=== PATIENT | female | born 1985 | race African-American/Black ===

== ENCOUNTER 2018-01-22 16:58 | Inpatient (IN) | payer OTHER ==
[~2018-01-22] VITALS: Ht 170.2 cm; Wt 85.3 kg
[~2018-01-22 16:58] MED LIST: A/B OTIC 54 MG/15 ML OT; AMBIEN5 M1 PO; AMOXICILLIN500 M3 PO; AMOXIL 875 MG875 MG PO; BACTRIM DS 8001 TAB PO; CLINDAMYCIN300 MG PO; CYCLOBENZAPRINE10 M1 PO; HYDROXYZINE HCL50 M1 PO; HYDROXYZINE50 MG PO; IBUPROFEN800 M1 PO; INDOCIN25 MG PO; INDOMETHACIN50 M1 PO; KEFLEX 250MG C250 MG PO; KEFLEX500 MG PO; MOTRIN800 MG PO; PANTOPRAZOLE SO40 M1 PO; PERCOCET 325 MG1 TA2 PO; PERCOCET 5-3251 EACH PO; PRENATAL 19 CH1 EAC1; PROPRANOLOL HC120 M1; TRAMADOL50 MG PO; TRIAMCINOLONE A15 G3 TOP; ZOFRAN ODT4 MG PO
[2018-01-22 17:34] LABS: ABSOLUTE BASOPHIL COUNT 0.1 /CUMM (0.0-0.2); ABSOLUTE EOSINOPHIL COUNT 0.1 /CUMM (0.0-0.7); ABSOLUTE GRANULOCYTE CT 4.8 /CUMM (1.4-6.5); ABSOLUTE MONOCYTE COUNT 0.4 /CUMM (0.10-0.60); BASOPHIL % 1.4 % (0.0-2.0); EOSINOPHIL % 1.4 % (0-5); HEMATOCRIT 36.6 % (37-47); MEAN CORPUSCULAR HGB 26.5 PG (27.0-31.0); MEAN CORPUSCULAR HGB CONC 32.7 G/DL (33.0-37.0); MEAN PLATELET VOLUME 7.7 FL (7.4-10.4); PLATELET COUNT 459 /CUMM (130-400); RBC DISTRIBUTION WIDTH 14.8 % (11.5-14.5); RED BLOOD CELL CT 4.52 /CUMM (4.20-5.40); WHITE BLOOD CELL COUNT 8.5 /CUMM (4.8-10.8)
--- NOTE | 2018-01-22 19:37 | ED GENERAL ADULT ---
History of Present Illness General Chief Complaint: Abdominal Pain/Flank Pain Stated Complaint: ABD PAIN X2 DAYS +V Source: patient Exam Limitations: no limitations Vital Signs & Intake/Output Vital Signs & Intake/Output Vital Signs Date Time Temp Pulse Resp B/P B/P Pulse O2 O2 Flow FiO2 Mean Ox Delivery Rate 01/22 2201 98.3 98 Room Air 01/22 2156 80 18 110/60 01/22 1904 97 Room Air 01/22 1711 97.9 88 20 136/80 Allergies Coded Allergies: sulfamethoxazole (From BACTRIM) (RASH AND BAD FEELING 09/07/15) trimethoprim (From BACTRIM) (RASH AND BAD FEELING 09/07/15) Reconcile Medications Amoxicillin 500 MG TABLET 1 TAB PO TID PHARYNGITIS Amoxicillin (Amoxil 875 MG Tablets) 875 MG TAB 1 TAB PO BID EAR INFECTION Antipyrine/Benzocaine (A/B Otic 54 MG/Ml-14 MG/Ml 15 Ml) 15 ML YASIR 2-4 GTT OT Q4P PRN ear pain Cephalexin (Keflex) 500 MG CAP 1 TAB PO TID CELLUILTIS Cephalexin (Keflex 250MG Cap) 250 MG CAP 1 TAB PO 4 TIMES/DAY INFECTED WOUND CLINDAMYCIN HCL (Clindamycin HCl) 300 MG CAP 1 TAB PO TID WOUND DEHISCENSE Cyclobenzaprine HCl 10 MG TABLET 1 TAB PO 4 TIMES/DAY PRN MUSCLE SPASM Hydroxyzine Hydrochloride (Hydroxyzine) 50 MG TAB 1 TAB PO TID PRN PRURITUS Hydroxyzine Hydrochloride (Atarax) 50 MG TABLET 1 TAB PO Q6H PRN RASH/ITCH Ibuprofen 800 MG TABLET 1 TAB PO TID PRN pain Ibuprofen (Motrin) 800 MG TAB 1 TAB PO Q8H PRN PAIN/FEVERS Indomethacin 50 MG CAPSULE 1 CAP PO TID PRN THUMB PAIN with food Indomethacin (Indocin) 25 MG CAP 1 TAB PO TID PRN PAIN take with food Ondansetron (Zofran Odt) 4 MG TAB.RAPDIS 1 TAB PO Q6H PRN NAUSEA Oxycodone HCl/Acetaminophen (Percocet 5-325 MG Tablet) 5 MG-325 MG TABLET 1 TAB PO 4XDP PRN PAIN TEN...[id number] OXYCODONE HCL/ACETAMINOPHEN (Percocet 5-325 MG Tablet) 325 MG/5 MG TAB 1-2 TAB PO Q4-6 PRN PRN PAIN Pantoprazole Sodium 40 MG TABLET.DR 1 TAB PO DAILY STOMACH HEALTH (Reported) Pnv No.118/Iron Fumarate/FA ( 19 Chewable Tablet) 29 MG IRON-1 MG TAB.CHEW HEALTH SUPPLEMENT (Reported) Propranolol HCl (Propranolol HCl ER) 120 MG CAP.SA.24H MIGRAINE (Reported) TRAMADOL HCL (Tramadol) 50 MG TAB 1-2 TAB PO Q6P PRN PAIN Triamcinolone Acetonide 15 GM OINT...G. 1 JEAN TOP BID PRN itch/rash apply to affected area(s) Zolpidem Tartrate (Ambien) 5 MG TABLET 5 MG PO D PRN SLEEP (Reported) Triage Note: PER PT X 2 DAYS UPPER ABD PAIN, VOMITS ONLY AFTER EATING OR DRINKING ANYTHING NO DIARRHEA OR FEVERS. LMP 12/11/17 Triage Nurses Notes Reviewed? yes Onset: Abrupt Duration: day(s): Timing: recent history : No Patient currently breastfeeds: No HPI: 01/22/18 8:50 PM 32-year-old female presents to the emergency department for 2 days of progressive epigastric abdominal pain followed by episodes of vomiting today. She is status post gastric bypass surgery in 2016. Her last bowel movement was today it was slight diarrhea. Past History Travel History Traveled to [place] past 21 day No Medical History Any Pertinent Medical History? 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 No Review of Systems Review of Systems Constitutional: Denies: fever. EENTM: Denies: visual changes. Respiratory: Denies: short of breath. Cardiovascular: Denies: chest pain. GI: Reports: abdominal pain, nausea, vomiting. Genitourinary: Reports: no symptoms. Musculoskeletal: Reports: no symptoms. Skin: Reports: no symptoms. Neurological/Psychological: Reports: no symptoms. Hematologic/Endocrine: Reports: no symptoms. Immunologic/Allergic: Reports: no symptoms. Physical Exam Physical Exam General Appearance: well developed/nourished, alert, awake, anxious, moderate distress Head: atraumatic, normal appearance Eyes: Bilateral: normal appearance, PERRL, EOMI. Ears, Nose, Throat: normal pharynx, normal ENT inspection, hearing grossly normal Neck: normal inspection, supple, full range of motion Respiratory: normal breath sounds, chest non-tender, no respiratory distress Cardiovascular: regular rate/rhythm Peripheral Pulses: 4+ radial (R), 4+ radial (L) Gastrointestinal: soft, non-tender Back: normal range of motion, vertebral tenderness Extremities: normal range of motion, no edema Neurologic/Psych: no motor/sensory deficits, awake, alert, oriented x 3 Skin: intact, normal color, warm/dry Core Measures ACS in differential dx? No CVA/TIA Diagnosis: No Sepsis Present: No Sepsis Focused Exam Completed? No Progress Differential Diagnoses I considered the following diagnoses in my evaluation of the patient: [Bowel obstruction, pancreatitis, cholecystitis, peptic ulcer disease, internal hernia Plan of Care: Orders Procedure Date/time Status Nothing by Mouth 01/[address] in observation 01/23 34 Active ED Holding Orders 01/23 34 Active Vital Signs 01/23 34 Active Code Status 01/23 34 Active LACTIC ACID 01/23 2008 Complete URINE 01/23 1708 Complete URINALYSIS 01/23 1708 Complete LIPASE 01/23 1708 Complete LACTIC ACID 01/23 1708 Complete COMPREHENSIVE METABOLIC PANEL 01/23 1708 Complete CBC WITHOUT DIFFERENTIAL 01/23 1708 Complete Current Medications Sig/Mitzy Start time Last Medication Dose Stop Time Status Admin Morphine Sulfate 4 MG ONCE ONE 01/23 30 UNVr (MORPHINE SULFATE) 01/23 31 Pantoprazole Sodium 40 MG ONCE ONE 01/23 30 UNVr (Protonix) 01/23 31 Laboratory Tests 01/22/18 2101: Lactic Acid 0.6 L 01/22/18 1858: Urinalysis LIGHT H, Urine Color YEL, Urine Clarity HAZY H, Urine pH 6.5, Ur Specific [place] 1.025, Urine Protein NEG, Urine Ketones NEG, Urine Nitrite NEG, Urine Bilirubin NEG, Urine Urobilinogen 1.0, Ur Leukocyte Esterase TRACE H, Ur Microscopic SEDIMENT EXAMINED, Urine RBC 3-5, Urine WBC 3-5 H, Ur Epithelial Cells MOD H, Urine Bacteria FEW H, Urine Mucus FEW, Urine Hemoglobin TRACE- INTACT, Urine Glucose NEG, Urine Test NEGATIVE 01/22/18 1720: Anion Gap 10, Estimated GFR > 60, BUN/Creatinine Ratio 12.5, Glucose 149 H, Lactic Acid 1.7, Calcium 9.0, Total Bilirubin 0.7, AST 25, ALT 36, Alkaline Phosphatase 48, Total Protein 7.0, Albumin 4.1, Globulin 2.9, Albumin/Globulin Ratio 1.4, Lipase 172, CBC w Diff NO MAN DIFF REQ, RBC 4.52, MCV 81.0, MCH 26.5 L, MCHC 32.7 L, RDW 14.8 H, MPV 7.7, Gran % 57.0, Lymphocytes % 35.4, Monocytes % 4.8, Eosinophils % 1.4, Basophils % 1.4, Absolute Granulocytes 4.8, Absolute Lymphocytes 3.0, Absolute Monocytes 0.4, Absolute Eosinophils 0.1, Absolute Basophils 0.1 Initial ED EKG: none Departure Departure Disposition: STILL A PATIENT Condition: Stable Clinical Impression Primary Impression: Abdominal pain Referrals: Ni Gamboa MD (PCP/Family) Departure Forms: Customer Survey General Discharge Information Observation Note Spoke With: Kendal MENESES,Alexander NSanford Physician Advisor Notified: TATI PALMA DO Place Patient In: Non-ED OBS Care Area Rationale for Observation: My rational for observation is as follows [patient with intractable vomiting and pain. She needs IV fluids and IV antiemetics and IV pain medication]. Critical Care Note Critical Care Note Critical Care Time: non-applicable
--- NOTE | 2018-01-22 23:03 | CT SCAN REPORT ---
EXAMINATION: CT ABDOMEN AND PELVIS WITH CONTRAST CLINICAL INFORMATION: Status post gastric bypass March 2016. Abdominal pain. COMPARISON: None TECHNIQUE: Multidetector volumetric imaging was performed of the abdomen and pelvis following IV administration of 95 mL of Optiray 320 intravenous contrast. Oral contrast was also utilized for bariatric protocol. Sagittal and coronal reformatted images were obtained on the technologist's workstation. DLP: 383 mGy-cm FINDINGS: LUNG BASES: The visualized lung bases are unremarkable. LIVER, GALLBLADDER, AND BILIARY TREE: The liver is normal in size, shape, and attenuation. No focal hepatic lesion.. Cholecystectomy. Mild intrahepatic biliary ductal dilatation. The common bile duct is dilated, which is a nonspecific finding. This measures 1.1 cm. No filling defects seen. PANCREAS: There is also dilatation of the pancreatic duct, measuring up to 0 cm. No focal abnormality is seen in the region of the pancreatic head. There is no mass identified. The pancreatic parenchyma is homogenous without atrophy. SPLEEN: Peripheral heterogeneously enhancing lesion in the spleen measuring 2.4 cm. The spleen is normal in size. ADRENAL GLANDS: Unremarkable. KIDNEYS AND URETERS: The kidneys are normal in size, shape, and attenuation. No hydronephrosis, hydroureter, or calculi seen. No perinephric stranding. BLADDER: Unremarkable. GASTROINTESTINAL TRACT: Status post Lisandra-en-Y gastric bypass. Contrast freely passes beyond the gastrojejunal anastomosis and jejunojejunal anastomosis. No obstruction. There is no bowel wall thickening or inflammation. Normal appendix. No free air or free fluid. ABDOMINAL WALL: No significant hernia is appreciated. LYMPH NODES: Normal. VASCULAR: Unremarkable. PELVIC VISCERA: The uterus and adnexa are unremarkable. OSSEOUS STRUCTURES: No acute or suspicious osseous abnormality. Mild degenerative change of L5-S1 with small endplate osteophytes. Mild degenerative changes at both hips. IMPRESSION: There is dilatation of the biliary ductal system as well as the pancreatic duct. Although the patient is status post cholecystectomy and common bile duct dilatation can be seen, associated pancreatic ductal dilatation would not be expected. There is no focal mass identified in the region of the pancreatic head, without pancreatic atrophy. No definite filling defect is seen to suggest choledocholithiasis, although this remains a possibility. Distal stricturing is also a consideration. Consider further evaluation with ERCP or MRCP. Lisandra-en-Y gastric bypass. No bowel obstruction. Heterogeneously enhancing lesion in the spleen likely representing hemangioma.
--- NOTE | 2018-01-23 01:00 | History & Physical ---
General Information and HPI MD Statement: I have seen and personally examined RAMOS NELSON and documented this H&P. The patient is a 32 year old F who presented with a patient stated chief complaint of [abdominal pain]. Source of Information: patient Exam Limitations: no limitations History of Present Illness: 32-year-old female 2 years status post gastric bypass surgery with approximately an 80 pound weight loss presents to the emergency room with abdominal pain nausea and vomiting. Abdominal pain is in the central epigastric region, nonradiating, severe, constant. She states it started after eating some cantaloupe. She denies significant NSAID use, denies coffee, denies smoking, denies , denies fever or flulike illness. She states that she cannot eat, she tries to eat and then she throws up. She is also status post cholecystectomy. Surgeries were done at [facility] with a gastric bypass being in 2015 and the cholecystectomy being a year or 2 prior to this. She has had no postoperative complications of the surgeries. There is been no recent travel or significant change in her diet. She states that her last bowel movement was this morning and was loose. She is passing gas. She has mild abdominal distention from baseline. She has a decreased appetite and she has worsening pain after she attempts to eat or drink anything. She was treated in the ER with IV fluids and IV antiemetics and IV pain medication. She had labs which were unremarkable and a CT scan that was largely unremarkable as well. Surgery was consulted for further evaluation. Allergies/Medications Allergies: Coded Allergies: sulfamethoxazole (From BACTRIM) (RASH AND BAD FEELING 09/07/15) trimethoprim (From BACTRIM) (RASH AND BAD FEELING 09/07/15) Home Med list Amoxicillin 500 MG TABLET 1 TAB PO TID PHARYNGITIS Amoxicillin (Amoxil 875 MG Tablets) 875 MG TAB 1 TAB PO BID EAR INFECTION Antipyrine/Benzocaine (A/B Otic 54 MG/Ml-14 MG/Ml 15 Ml) 15 ML YASIR 2-4 GTT OT Q4P PRN ear pain Cephalexin (Keflex) 500 MG CAP 1 TAB PO TID CELLUILTIS Cephalexin (Keflex 250MG Cap) 250 MG CAP 1 TAB PO 4 TIMES/DAY INFECTED WOUND CLINDAMYCIN HCL (Clindamycin HCl) 300 MG CAP 1 TAB PO TID WOUND DEHISCENSE Cyclobenzaprine HCl 10 MG TABLET 1 TAB PO 4 TIMES/DAY PRN MUSCLE SPASM Hydroxyzine Hydrochloride (Hydroxyzine) 50 MG TAB 1 TAB PO TID PRN PRURITUS Hydroxyzine Hydrochloride (Atarax) 50 MG TABLET 1 TAB PO Q6H PRN RASH/ITCH Ibuprofen 800 MG TABLET 1 TAB PO TID PRN pain Ibuprofen (Motrin) 800 MG TAB 1 TAB PO Q8H PRN PAIN/FEVERS Indomethacin 50 MG CAPSULE 1 CAP PO TID PRN THUMB PAIN with food Indomethacin (Indocin) 25 MG CAP 1 TAB PO TID PRN PAIN take with food Ondansetron (Zofran Odt) 4 MG TAB.RAPDIS 1 TAB PO Q6H PRN NAUSEA Oxycodone HCl/Acetaminophen (Percocet 5-325 MG Tablet) 5 MG-325 MG TABLET 1 TAB PO 4XDP PRN PAIN TEN...[id number] OXYCODONE HCL/ACETAMINOPHEN (Percocet 5-325 MG Tablet) 325 MG/5 MG TAB 1-2 TAB PO Q4-6 PRN PRN PAIN Pantoprazole Sodium 40 MG TABLET.DR 1 TAB PO DAILY STOMACH HEALTH (Reported) Pnv No.118/Iron Fumarate/FA ( 19 Chewable Tablet) 29 MG IRON-1 MG TAB.CHEW HEALTH SUPPLEMENT (Reported) Propranolol HCl (Propranolol HCl ER) 120 MG CAP.SA.24H MIGRAINE (Reported) TRAMADOL HCL (Tramadol) 50 MG TAB 1-2 TAB PO Q6P PRN PAIN Triamcinolone Acetonide 15 GM OINT...G. 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 Review of Systems Review of Systems Constitutional: Reports: see HPI. EENTM: Reports: no symptoms. Cardiovascular: Reports: no symptoms. Respiratory: Reports: no symptoms. GI: Reports: see HPI. Genitourinary: Reports: no symptoms. Musculoskeletal: Reports: no symptoms. Skin: Reports: no symptoms. Neurological/Psychological: Reports: no symptoms. Exam & Diagnostic Data Last 24 Hrs of Vital Signs/I&O Vital Signs Date Time Temp Pulse Resp B/P B/P Pulse O2 O2 Flow FiO2 Mean Ox Delivery Rate 01/23 0058 84 18 110/67 98 Room Air 01/22 2201 98.3 98 Room Air 01/22 2156 80 18 110/60 01/22 1904 97 Room Air 01/22 1711 97.9 88 20 136/80 Physical Exam General Appearance Alert, Oriented X3, Cooperative, No Acute Distress Skin No Rashes, No Breakdown, No Significant Lesion Skin Temp/Moisture Exam: Warm/Dry Sepsis Skin Exam (color): Normal for Ethnicity HEENT Atraumatic, PERRLA, EOMI, Mucous Membr. moist/pink Neck Supple, No JVD Cardiovascular Regular Rate, Normal S1, Normal S2, No Murmurs Lungs Clear to Auscultation, Normal Air Movement Abdomen Normal Bowel Sounds, Soft, minimal distension, tenderness in the epigastrium only. no lower abd tenderness, no tympany, no peritoneal signs. Neurological Normal Speech, Strength at 5/5 X4 Ext, Normal Tone, Sensation Intact Extremities No Clubbing, No Cyanosis, No Edema, Normal Pulses, No Tenderness/ Swelling Last 24 Hrs of Labs/Price: Laboratory Tests 01/22/18 2101: Lactic Acid 0.6 L 01/22/18 1858: Urinalysis LIGHT H, Urine Color YEL, Urine Clarity HAZY H, Urine pH 6.5, Ur Specific [place] 1.025, Urine Protein NEG, Urine Ketones NEG, Urine Nitrite NEG, Urine Bilirubin NEG, Urine Urobilinogen 1.0, Ur Leukocyte Esterase TRACE H, Ur Microscopic SEDIMENT EXAMINED, Urine RBC 3-5, Urine WBC 3-5 H, Ur Epithelial Cells MOD H, Urine Bacteria FEW H, Urine Mucus FEW, Urine Hemoglobin TRACE- INTACT, Urine Glucose NEG, Urine Test NEGATIVE 01/22/18 1720: Anion Gap 10, Estimated GFR > 60, BUN/Creatinine Ratio 12.5, Glucose 149 H, Lactic Acid 1.7, Calcium 9.0, Total Bilirubin 0.7, AST 25, ALT 36, Alkaline Phosphatase 48, Total Protein 7.0, Albumin 4.1, Globulin 2.9, Albumin/Globulin Ratio 1.4, Lipase 172, CBC w Diff NO MAN DIFF REQ, RBC 4.52, MCV 81.0, MCH 26.5 L, MCHC 32.7 L, RDW 14.8 H, MPV 7.7, Gran % 57.0, Lymphocytes % 35.4, Monocytes % 4.8, Eosinophils % 1.4, Basophils % 1.4, Absolute Granulocytes 4.8, Absolute Lymphocytes 3.0, Absolute Monocytes 0.4, Absolute Eosinophils 0.1, Absolute Basophils 0.1 Diagnostic Data Other Results PATIENT: RAMOS NELSON PRESENT AGE: 32 PATIENT ACCOUNT NO: [id number] : 83 LOCATION: [facility] ORDERING PHYSICIAN: Bello Wan DO SERVICE DATE: 01/22/18 EXAM TYPE: CAT - CT ABD & PELVIS W ORAL & IV CO EXAMINATION: CT ABDOMEN AND PELVIS WITH CONTRAST CLINICAL INFORMATION: Status post gastric bypass March 2016. Abdominal pain. COMPARISON: None TECHNIQUE: Multidetector volumetric imaging was performed of the abdomen and pelvis following IV administration of 95 mL of Optiray 320 intravenous contrast. Oral contrast was also utilized for bariatric protocol. Sagittal and coronal reformatted images were obtained on the technologist's workstation. DLP: 383 mGy-cm FINDINGS: LUNG BASES: The visualized lung bases are unremarkable. LIVER, GALLBLADDER, AND BILIARY TREE: The liver is normal in size, shape, and attenuation. No focal hepatic lesion.. Cholecystectomy. Mild intrahepatic biliary ductal dilatation. The common bile duct is dilated, which is a nonspecific finding. This measures 1.1 cm. No filling defects seen. PANCREAS: There is also dilatation of the pancreatic duct, measuring up to 0 cm. No focal abnormality is seen in the region of the pancreatic head. There is no mass identified. The pancreatic parenchyma is homogenous without atrophy. SPLEEN: Peripheral heterogeneously enhancing lesion in the spleen measuring 2.4 cm. The spleen is normal in size. ADRENAL GLANDS: Unremarkable. KIDNEYS AND URETERS: The kidneys are normal in size, shape, and attenuation. No hydronephrosis, hydroureter, or calculi seen. No perinephric stranding. BLADDER: Unremarkable. GASTROINTESTINAL TRACT: Status post Lisandra-en-Y gastric bypass. Contrast freely passes beyond the gastrojejunal anastomosis and jejunojejunal anastomosis. No obstruction. There is no bowel wall thickening or inflammation. Normal appendix. No free air or free fluid. ABDOMINAL WALL: No significant hernia is appreciated. LYMPH NODES: Normal. VASCULAR: Unremarkable. PELVIC VISCERA: The uterus and adnexa are unremarkable. OSSEOUS STRUCTURES: No acute or suspicious osseous abnormality. Mild degenerative change of L5-S1 with small endplate osteophytes. Mild degenerative changes at both hips. IMPRESSION: There is dilatation of the biliary ductal system as well as the pancreatic duct. Although the patient is status post cholecystectomy and common bile duct dilatation can be seen, associated pancreatic ductal dilatation would not be expected. There is no focal mass identified in the region of the pancreatic head, without pancreatic atrophy. No definite filling defect is seen to suggest choledocholithiasis, although this remains a possibility. Distal stricturing is also a consideration. Consider further evaluation with ERCP or MRCP. Lisandra-en-Y gastric bypass. No bowel obstruction. Heterogeneously enhancing lesion in the spleen likely representing hemangioma. DICTATED BY: Daquan Trejo MD DATE/TIME DICTATED:01/22/182252 BELL PERSON:GILDARDO DATE/TIME TRANSCRIBED:01/22/182252 CONFIDENTIAL, DO NOT COPY WITHOUT APPROPRIATE AUTHORIZATION. <Electronically signed in Other Vendor System> SIGNED BY: Daquan Trejo MD 01/22 2857 Assessment/Plan Assessment: 32-year-old female 2 years status post gastric bypass surgery, 80 pounds approximate weight loss, presents to the ER with abdominal pain nausea and vomiting for the last 2 days. She has a slightly abnormal appearing common bile duct and pancreatic duct on an otherwise unremarkable CT scan. Due to her gastric bypass surgery she is at risk for internal hernia. She will require further observation in the hospital overnight for serial abdominal exams and repeat laboratory values monitoring for signs of small bowel obstruction secondary to internal hernia or a possible common bile duct blockage. We will repeat her labs in the morning, continue IV fluids, maintain n.p.o. status, provide pain medication as needed and IV antiemetics as needed. Plan was discussed with Alexander Edmonds MD, patient understands and agrees with plan as well. As Ranked By This Provider Problem List: 1. Abdominal pain Core Measures/Misc (03/01) Acute Coronary Syndrome ACS Diagnosis: No Congestive Heart Failure Congestive Heart Failure Diagnosis No Cerebrovascular Accident CVA/TIA Diagnosis: No VTE (View Protocol) VTE Risk Factors Estrogen Therapy No Mechanical VTE Prophylaxis d/t N/A MechProphylax Ordered No VTE Pharm Prophylaxis d/t NA PharmProphylax ordered Sepsis (View protocol) Sepsis Present: No If YES complete Sepsis Event Note If YES complete Sepsis Event Note
--- NOTE | 2018-01-23 01:07 | Admission Core Measures ---
Acute Coronary Syndrome (CM) ACS Core Measures Acute Coronary Syndrome Diagnosis No Congestive Heart Failure (NEW) CHF Core Measures Congestive Heart Failure Diagnosis No Cerebrovascular Accident CVA Core Measures CVA/TIA Diagnosis No Venous Thromboembolism VTE Core Brittani (View Protocol) VTE Risk Factors Estrogen Therapy No Mechanical VTE Prophylaxis d/t N/A MechProphylax Ordered No VTE Pharm Prophylaxis d/t NA PharmProphylax ordered Problem List As ranked by this Provider includes Assessment & Plan 1. Abdominal pain HOME MEDS Home Med List Amoxicillin 500 MG TABLET 1 TAB PO TID PHARYNGITIS Amoxicillin (Amoxil 875 MG Tablets) 875 MG TAB 1 TAB PO BID EAR INFECTION Antipyrine/Benzocaine (A/B Otic 54 MG/Ml-14 MG/Ml 15 Ml) 15 ML YASIR 2-4 GTT OT Q4P PRN ear pain Cephalexin (Keflex) 500 MG CAP 1 TAB PO TID CELLUILTIS Cephalexin (Keflex 250MG Cap) 250 MG CAP 1 TAB PO 4 TIMES/DAY INFECTED WOUND CLINDAMYCIN HCL (Clindamycin HCl) 300 MG CAP 1 TAB PO TID WOUND DEHISCENSE Cyclobenzaprine HCl 10 MG TABLET 1 TAB PO 4 TIMES/DAY PRN MUSCLE SPASM Hydroxyzine Hydrochloride (Hydroxyzine) 50 MG TAB 1 TAB PO TID PRN PRURITUS Hydroxyzine Hydrochloride (Atarax) 50 MG TABLET 1 TAB PO Q6H PRN RASH/ITCH Ibuprofen 800 MG TABLET 1 TAB PO TID PRN pain Ibuprofen (Motrin) 800 MG TAB 1 TAB PO Q8H PRN PAIN/FEVERS Indomethacin 50 MG CAPSULE 1 CAP PO TID PRN THUMB PAIN Indomethacin (Indocin) 25 MG CAP 1 TAB PO TID PRN PAIN Ondansetron (Zofran Odt) 4 MG TAB.RAPDIS 1 TAB PO Q6H PRN NAUSEA Oxycodone HCl/Acetaminophen (Percocet 5-325 MG Tablet) 5 MG-325 MG TABLET 1 TAB PO 4XDP PRN PAIN OXYCODONE HCL/ACETAMINOPHEN (Percocet 5-325 MG Tablet) 325 MG/5 MG TAB 1-2 TAB PO Q4-6 PRN PRN PAIN Pantoprazole Sodium 40 MG TABLET.DR 1 TAB PO DAILY STOMACH HEALTH (Reported) TRAMADOL HCL (Tramadol) 50 MG TAB 1-2 TAB PO Q6P PRN PAIN Triamcinolone Acetonide 15 GM OINT...G. 1 JEAN TOP BID PRN itch/rash Zolpidem Tartrate (Ambien) 5 MG TABLET 5 MG PO D PRN SLEEP (Reported)
[2018-01-23] MEDS ORDERED: FERROUS SULFAT325 M3 PO (02:30)
[2018-01-23 02:49] VITALS: BP 122/76
[2018-01-23 06:19] VITALS: BP 118/72
[2018-01-23 09:55] LABS: ABSOLUTE BASOPHIL COUNT 0 /CUMM (0.0-0.2); ABSOLUTE EOSINOPHIL COUNT 0.1 /CUMM (0.0-0.7); ABSOLUTE GRANULOCYTE CT 2.9 /CUMM (1.4-6.5); ABSOLUTE LYMPH COUNT 3.6 /CUMM (1.2-3.4); ABSOLUTE MONOCYTE COUNT 0.3 /CUMM (0.10-0.60); BASOPHIL % 0.5 % (0.0-2.0); GRANULOCYTE % 41.6 % (42.2-75.2); MEAN CORPUSCULAR HGB 26.7 PG (27.0-31.0); MEAN PLATELET VOLUME 7.9 FL (7.4-10.4); PLATELET COUNT 382 /CUMM (130-400); RBC DISTRIBUTION WIDTH 14.9 % (11.5-14.5)
[2018-01-23 11:49] LABS: WHITE BLOOD CELL COUNT 6.9 /CUMM (4.8-10.8)
--- NOTE | 2018-01-23 12:51 | History & Physical Pre-Op ---
General Information and HPI Source of Information: patient Exam Limitations: no limitations History of Present Illness: CC: abdominal pain HPI: 32-year-old nondiabetic nonsmoker no medications had a gastric bypass about 2 years ago laparoscopic cholecystectomy prior to this apparently no stones then. She was in her usual state of good health when about 3 days ago while at work she started having some point tenderness in her mid epigastrium its constant there seems to be associated vomiting she can't keep anything down because she feels a tiny bit better this morning, she has passed some gas. Last night when she came to the ER she had a CT scan with oral contrast that did not come back up. She denies any recent flulike symptoms unusual meals unusual straining fevers sweats she has lost 80 pounds from her gastric bypass initially there was some vomiting but then she felt well for a long time to this episode. She has not had a prior CT scan she does not recall ever being told that there were issues with her bile duct or pancreas. All food seems to bother her at this started she had some cantaloupe. She's had some loose watery bowel movements as well initially no unusual darkening like iced tea urine or erika- colored stools. Pain is not worse on movement it doesn't radiate to her back. There is no family history of any intestinal or other cancers. There is family history of diabetes no heart disease. I've reviewed the [facility]. No history of GERD, PUD, bleeding problems, heart disease or issues with anesthesia. Allergies/Medications Allergies: Coded Allergies: sulfamethoxazole (From BACTRIM) (RASH AND BAD FEELING 09/07/15) trimethoprim (From BACTRIM) (RASH AND BAD FEELING 09/07/15) Home Med list Amoxicillin 500 MG TABLET 1 TAB PO TID PHARYNGITIS Amoxicillin (Amoxil 875 MG Tablets) 875 MG TAB 1 TAB PO BID EAR INFECTION Antipyrine/Benzocaine (A/B Otic 54 MG/Ml-14 MG/Ml 15 Ml) 15 ML YASIR 2-4 GTT OT Q4P PRN ear pain Cephalexin (Keflex) 500 MG CAP 1 TAB PO TID CELLUILTIS Cephalexin (Keflex 250MG Cap) 250 MG CAP 1 TAB PO 4 TIMES/DAY INFECTED WOUND CLINDAMYCIN HCL (Clindamycin HCl) 300 MG CAP 1 TAB PO TID WOUND DEHISCENSE Cyclobenzaprine HCl 10 MG TABLET 1 TAB PO 4 TIMES/DAY PRN MUSCLE SPASM Ferrous Sulfate 325 MG (65 MG IRON) TABLET 1 TAB PO DAILY SUPPLEMENT ( Reported) Hydroxyzine Hydrochloride (Hydroxyzine) 50 MG TAB 1 TAB PO TID PRN PRURITUS Hydroxyzine Hydrochloride (Atarax) 50 MG TABLET 1 TAB PO Q6H PRN RASH/ITCH Ibuprofen 800 MG TABLET 1 TAB PO TID PRN pain Ibuprofen (Motrin) 800 MG TAB 1 TAB PO Q8H PRN PAIN/FEVERS Indomethacin 50 MG CAPSULE 1 CAP PO TID PRN THUMB PAIN with food Indomethacin (Indocin) 25 MG CAP 1 TAB PO TID PRN PAIN take with food Ondansetron (Zofran Odt) 4 MG TAB.RAPDIS 1 TAB PO Q6H PRN NAUSEA Oxycodone HCl/Acetaminophen (Percocet 5-325 MG Tablet) 5 MG-325 MG TABLET 1 TAB PO 4XDP PRN PAIN TEN...[id number] OXYCODONE HCL/ACETAMINOPHEN (Percocet 5-325 MG Tablet) 325 MG/5 MG TAB 1-2 TAB PO Q4-6 PRN PRN PAIN Pantoprazole Sodium 40 MG TABLET.DR 1 TAB PO DAILY STOMACH HEALTH (Reported) Pnv No.118/Iron Fumarate/FA ( 19 Chewable Tablet) 29 MG IRON-1 MG TAB.CHEW HEALTH SUPPLEMENT (Reported) Propranolol HCl (Propranolol HCl ER) 120 MG CAP.SA.24H MIGRAINE (Reported) TRAMADOL HCL (Tramadol) 50 MG TAB 1-2 TAB PO Q6P PRN PAIN Triamcinolone Acetonide 15 GM OINT...G. 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 Review of Systems Review of Systems: Constitutional: No fever, sweats or weight loss ENMT: No sore throat Cardiovascular: No chest pain, palpitations or leg swelling Respiratory: No shortness of breath, cough, or sputum or dyspnea on exertion GI: No GERD or bleeding per rectum : No dysuria or hematuria Musculoskeletal: No new muscle weakness, bone or joint pain Skin / Breast: No jaundice, rashes or itching Psychiatric: No history of drug or alcohol abuse no depression or anxiety Hematologic / lymphatic system: No problems with excessive bleeding, bruising, or blood clots Exam & Diagnostic Data Last 24 Hrs of Vital Signs/I&O I reviewed Vital Signs Date Time Temp Pulse Resp B/P B/P Pulse O2 O2 Flow FiO2 Mean Ox Delivery Rate 01/23 0619 98.3 61 18 118/72 99 Room Air 01/23 0249 98.5 58 18 122/76 99 Room Air 01/23 0221 98.4 95 20 110/67 96 Room Air 01/23 0058 84 18 110/67 98 Room Air 01/22 2201 98.3 98 Room Air 01/22 2156 80 18 110/60 01/22 1904 97 Room Air 01/22 1711 97.9 88 20 136/80 I reviewed Intake & Output 01/23 1600 01/23 0800 01/23 0000 Intake Total 500 Output Total Balance 500 Intake, IV 500 Patient 188 lb Weight Physical Exam: Constitutional: pleasant, no acute distress, conversant Eyes: sclera anicteric ENMT: ears and nose atraumatic, moist mucous membranes, good dentition, no lip lesions Neck: Supple, trachea is midline, no cervical or supraclavicular adenopathy and no palpable thyromegaly Cardiovascular: S1, S2, no murmurs, no peripheral edema Respiratory: clear to auscultation with normal respiratory effort and no intercostal retractions GI: abdomen soft, she indicates midepigastrium it's not really tender now no rebound nondistended, no palpable hepatosplenomegaly Extremities / lymphatics: symmetrically warm, free range of motion no peripheral edema, no cervical, supraclavicular, axillary, or inguinal adenopathy Musculoskeletal: Did not evaluate gait and station, no digital cyanosis, good muscle strength and tone no atrophy, motor grossly 5 out of 5 throughout Skin: no jaundice, no rashes warm, nondiaphoretic, no areas of erythema or induration Psychiatric: mood and affect are appropriate and alert and oriented to person place and time Last 24 Hrs of Labs/Price: I reviewed Laboratory Tests 01/23/18 0815: Anion Gap 6, Estimated GFR > 60, BUN/Creatinine Ratio 8.8, Total Bilirubin 0.9, Direct Bilirubin 0.2, AST 20, ALT 38, Alkaline Phosphatase 29, Total Protein 5.7 L, Albumin 3.2 L, Amylase 40, Lipase 55, CBC w Diff NO MAN DIFF REQ, RBC 3.70 L, MCV 81.0, MCH 26.7 L, MCHC 33.0, RDW 14.9 H, MPV 7.9, Gran % 41.6 L, Lymphocytes % 52.8 H, Monocytes % 4.1, Eosinophils % 1.0, Basophils % 0.5, Absolute Granulocytes 2.9, Absolute Lymphocytes 3.6 H, Absolute Monocytes 0.3, Absolute Eosinophils 0.1, Absolute Basophils 0 01/22/18 2101: Lactic Acid 0.6 L 01/22/18 1858: Urinalysis LIGHT H, Urine Color YEL, Urine Clarity HAZY H, Urine pH 6.5, Ur Specific [place] 1.025, Urine Protein NEG, Urine Ketones NEG, Urine Nitrite NEG, Urine Bilirubin NEG, Urine Urobilinogen 1.0, Ur Leukocyte Esterase TRACE H, Ur Microscopic SEDIMENT EXAMINED, Urine RBC 3-5, Urine WBC 3-5 H, Ur Epithelial Cells MOD H, Urine Bacteria FEW H, Urine Mucus FEW, Urine Hemoglobin TRACE- INTACT, Urine Glucose NEG, Urine Test NEGATIVE 01/22/18 1720: Anion Gap 10, Estimated GFR > 60, BUN/Creatinine Ratio 12.5, Glucose 149 H, Lactic Acid 1.7, Calcium 9.0, Total Bilirubin 0.7, AST 25, ALT 36, Alkaline Phosphatase 48, Total Protein 7.0, Albumin 4.1, Globulin 2.9, Albumin/Globulin Ratio 1.4, Lipase 172, CBC w Diff NO MAN DIFF REQ, RBC 4.52, MCV 81.0, MCH 26.5 L, MCHC 32.7 L, RDW 14.8 H, MPV 7.7, Gran % 57.0, Lymphocytes % 35.4, Monocytes % 4.8, Eosinophils % 1.4, Basophils % 1.4, Absolute Granulocytes 4.8, Absolute Lymphocytes 3.0, Absolute Monocytes 0.4, Absolute Eosinophils 0.1, Absolute Basophils 0.1 Diagnostic Data Other Results PATIENT: RAMOS NELSON PRESENT AGE: 32 PATIENT ACCOUNT NO: [id number] : 83 LOCATION: [facility] ORDERING PHYSICIAN: Bello Wan DO SERVICE DATE: 01/22/18 EXAM TYPE: CAT - CT ABD & PELVIS W ORAL & IV CO EXAMINATION: CT ABDOMEN AND PELVIS WITH CONTRAST CLINICAL INFORMATION: Status post gastric bypass March 2016. Abdominal pain. COMPARISON: None TECHNIQUE: Multidetector volumetric imaging was performed of the abdomen and pelvis following IV administration of 95 mL of Optiray 320 intravenous contrast. Oral contrast was also utilized for bariatric protocol. Sagittal and coronal reformatted images were obtained on the technologist's workstation. DLP: 383 mGy-cm FINDINGS: LUNG BASES: The visualized lung bases are unremarkable. LIVER, GALLBLADDER, AND BILIARY TREE: The liver is normal in size, shape, and attenuation. No focal hepatic lesion.. Cholecystectomy. Mild intrahepatic biliary ductal dilatation. The common bile duct is dilated, which is a nonspecific finding. This measures 1.1 cm. No filling defects seen. PANCREAS: There is also dilatation of the pancreatic duct, measuring up to 0 cm. No focal abnormality is seen in the region of the pancreatic head. There is no mass identified. The pancreatic parenchyma is homogenous without atrophy. SPLEEN: Peripheral heterogeneously enhancing lesion in the spleen measuring 2.4 cm. The spleen is normal in size. ADRENAL GLANDS: Unremarkable. KIDNEYS AND URETERS: The kidneys are normal in size, shape, and attenuation. No hydronephrosis, hydroureter, or calculi seen. No perinephric stranding. BLADDER: Unremarkable. GASTROINTESTINAL TRACT: Status post Lisandra-en-Y gastric bypass. Contrast freely passes beyond the gastrojejunal anastomosis and jejunojejunal anastomosis. No obstruction. There is no bowel wall thickening or inflammation. Normal appendix. No free air or free fluid. ABDOMINAL WALL: No significant hernia is appreciated. LYMPH NODES: Normal. VASCULAR: Unremarkable. PELVIC VISCERA: The uterus and adnexa are unremarkable. OSSEOUS STRUCTURES: No acute or suspicious osseous abnormality. Mild degenerative change of L5-S1 with small endplate osteophytes. Mild degenerative changes at both hips. IMPRESSION: There is dilatation of the biliary ductal system as well as the pancreatic duct. Although the patient is status post cholecystectomy and common bile duct dilatation can be seen, associated pancreatic ductal dilatation would not be expected. There is no focal mass identified in the region of the pancreatic head, without pancreatic atrophy. No definite filling defect is seen to suggest choledocholithiasis, although this remains a possibility. Distal stricturing is also a consideration. Consider further evaluation with ERCP or MRCP. Lisandra-en-Y gastric bypass. No bowel obstruction. Heterogeneously enhancing lesion in the spleen likely representing hemangioma. 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 <Electronically signed in Other Vendor System> SIGNED BY: Daquan Trejo MD 01/22/18 2161 Assessment/Plan Assessment/Plan: Studies I reviewed last night's CT scan on PACS myself the oral contrast does go through into the small bowel distal to the bypass, the patch seems a little thickened although, there is biliary ductal and pancreatic ductal dilatations Impression is abdominal pain vomiting seemingly after cantaloupe 2 days ago slightly better now, no peritoneal signs unusual finding on CT scan with bilateral ducts and pancreatic duct dilatation we don't have priors for comparison this could've been chronic not sure if that is related to her pain and vomiting but she needs more workup discussed with GI will start with MRCP no acute surgical intervention indicated she has complicated anatomy if something further were needed at might require surgical access. As Ranked By This Provider Problem List: 1. Abdominal pain 2. Abnormal findings on diagnostic imaging of liver and biliary tract
[2018-01-23 15:33] VITALS: BP 110/60
[2018-01-23 22:14] VITALS: BP 102/60
[2018-01-24 07:21] VITALS: BP 118/70
[2018-01-24 08:36] LABS: ABSOLUTE BASOPHIL COUNT 0 /CUMM (0.0-0.2); ABSOLUTE EOSINOPHIL COUNT 0.3 /CUMM (0.0-0.7); ABSOLUTE GRANULOCYTE CT 1.9 /CUMM (1.4-6.5); ABSOLUTE LYMPH COUNT 2.7 /CUMM (1.2-3.4); ABSOLUTE MONOCYTE COUNT 0.2 /CUMM (0.10-0.60); BASOPHIL % 0.6 % (0.0-2.0); GRANULOCYTE % 36.2 % (42.2-75.2); HEMATOCRIT 31.2 % (37-47); MEAN CORPUSCULAR HGB 26.7 PG (27.0-31.0); MEAN CORPUSCULAR HGB CONC 33.2 G/DL (33.0-37.0); MEAN CORPUSCULAR VOLUME 80.4 FL (81.0-99.0); MEAN PLATELET VOLUME 8.4 FL (7.4-10.4); PLATELET COUNT 366 /CUMM (130-400); RBC DISTRIBUTION WIDTH 14.4 % (11.5-14.5); RED BLOOD CELL CT 3.88 /CUMM (4.20-5.40); WHITE BLOOD CELL COUNT 5.2 /CUMM (4.8-10.8)
--- NOTE | 2018-01-24 09:09 | PN- General Surgery ---
See Addendum Subjective Subjective: Patient reports pain improved since admission. Denies nausea or vomiting. Has an appetite. Offers no other complaints. Objective Vital Signs and I&Os Vital Signs Date Time Temp Pulse Resp B/P B/P Pulse O2 O2 Flow FiO2 Mean Ox Delivery Rate 01/24 721 98.4 64 20 118/70 93 01/23 2214 97.8 52 18 102/60 97 01/23 1600 Room Air 01/23 1533 98.5 60 18 110/60 97 Intake & Output 01/24 0801/24 0000 01/23 1600 01/23 0000 Intake Total 1050 20 875 500 Output Total Balance 1050 20 875 500 Intake, IV 1000 875 500 Intake, Oral 50 20 Number 0 0 Bowel Movements Patient 188 lb Weight Physical Exam: Gen - nad Cardiac - S1S2 noted Lungs - CTAB Abd - soft, nondistended, + bs, mild tenderness in epigastric region, no rebound or guarding noted Ext - alps in place, no edema or calf pain Current Medications: Current Medications Sig/Mitzy Start time Last Medication Dose Route Stop Time Status Admin Acetaminophen 650 MG Q6P PRN 01/23 100 AC PO Heparin Sodium 5,000 UNIT Q8 01/23 06 AC 01/24 (Porcine) SC 0615 Ketorolac 30 MG ONCE ONE 01/23 1515 DC 01/23 Tromethamine IV 01/23 1516 1536 Morphine Sulfate 4 MG Q4P PRN 01/23 0100 AC 01/23 IV 2134 Omeprazole 40 MG DAILY AC 01/23 0700 AC 01/24 PO 0616 Ondansetron HCl 4 MG Q6P PRN 01/23 100 AC IV Oxycodone/ 1 TAB Q4P PRN 01/23 010 AC Acetaminophen PO Oxycodone/ 2 TAB Q4P PRN 01/23 0100 AC 01/23 Acetaminophen PO 1953 Promethazine HCl 12.5 MG Q6P PRN 01/23 0100 AC IV 01/30 0059 Sodium Chloride 1,000 ML Q8H 01/23 0045 AC 01/24 IV 0618 Results Last 48 Hours of Labs: Laboratory Tests 01/24 01/23 0635 0815 Chemistry Sodium (137 - 145 mmol/L) Pending 135 L Potassium (3.5 - 5.1 mmol/L) Pending 4.2 Chloride (98 - 107 mmol/L) Pending 107 Carbon Dioxide (22 - 30 mmol/L) Pending 22 Anion Gap (5 - 16) Pending 6 BUN (7 - 17 mg/dL) Pending 7 Creatinine (0.5 - 1.0 mg/dL) Pending 0.8 Estimated GFR (>60 ml/min) > 60 BUN/Creatinine Ratio (7 - 25 %) Pending 8.8 Total Bilirubin (0.2 - 1.3 mg/dL) Pending 0.9 Direct Bilirubin (< 0.4 mg/dL) Pending 0.2 AST (14 - 36 U/L) Pending 20 ALT (9 - 52 U/L) Pending 38 Alkaline Phosphatase (<127 U/L) Pending 29 Total Protein (6.3 - 8.2 g/dL) Pending 5.7 L Albumin (3.5 - 5.0 g/dL) Pending 3.2 L Amylase (30 - 110 U/L) Pending 40 Lipase (23 - 300 U/L) Pending 55 Hematology CBC w Diff NO MAN DIFF REQ NO MAN DIFF REQ WBC (4.8 - 10.8 /CUMM) 5.2 6.9 RBC (4.20 - 5.40 /CUMM) 3.88 L 3.70 L Hgb (12.0 - 16.0 G/DL) 10.4 L 9.9 L Hct (37 - 47 %) 31.2 L 30.0 L MCV (81.0 - 99.0 FL) 80.4 L 81.0 MCH (27.0 - 31.0 PG) 26.7 L 26.7 L MCHC (33.0 - 37.0 G/DL) 33.2 33.0 RDW (11.5 - 14.5 %) 14.4 14.9 H Plt Count (130 - 400 /CUMM) 366 382 MPV (7.4 - 10.4 FL) 8.4 7.9 Gran % (42.2 - 75.2 %) 36.2 L 41.6 L Lymphocytes % (20.5 - 51.1 %) 52.7 H 52.8 H Monocytes % (1.7 - 9.3 %) 4.5 4.1 Eosinophils % (0 - 5 %) 6.0 H 1.0 Basophils % (0.0 - 2.0 %) 0.6 0.5 Absolute Granulocytes (1.4 - 6.5 /CUMM) 1.9 2.9 Absolute Lymphocytes (1.2 - 3.4 /CUMM) 2.7 3.6 H Absolute Monocytes (0.10 - 0.60 /CUMM) 0.2 0.3 Absolute Eosinophils (0.0 - 0.7 /CUMM) 0.3 0.1 Absolute Basophils (0.0 - 0.2 /CUMM) 0 0 01/22 01/22 2101 1858 Chemistry Lactic Acid (0.7 - 2.1 mmol/L) 0.6 L Urines Urinalysis LIGHT H Urine Color (YEL,AMB,STR) YEL Urine Clarity (CLEAR) HAZY H Urine pH (5.0 - 8.0) 6.5 Ur Specific [place] (1.001 - 1.035) 1.025 Urine Protein (NEG,<30 MG/DL) NEG Urine Ketones (NEG) NEG Urine Nitrite (NEG) NEG Urine Bilirubin (NEG) NEG Urine Urobilinogen (0.1 - 1.0 EU/dl) 1.0 Ur Leukocyte Esterase (NEG) TRACE H Ur Microscopic SEDIMENT EXAMINED Urine RBC (0 - 5 /HPF) 3-5 Urine WBC (0 - 2 /HPF) 3-5 H Ur Epithelial Cells (NONE,FEW) MOD H Urine Bacteria (NEG/NONE) FEW H Urine Mucus (FEW,NONE) FEW Urine Hemoglobin (NEG) TRACE-INTACT Urine Glucose (N MG/DL) NEG Urine Test NEGATIVE 01/22 1720 Chemistry Sodium (137 - 145 mmol/L) 136 L Potassium (3.5 - 5.1 mmol/L) 4.4 Chloride (98 - 107 mmol/L) 103 Carbon Dioxide (22 - 30 mmol/L) 23 Anion Gap (5 - 16) 10 BUN (7 - 17 mg/dL) 10 Creatinine (0.5 - 1.0 mg/dL) 0.8 Estimated GFR (>60 ml/min) > 60 BUN/Creatinine Ratio (7 - 25 %) 12.5 Glucose (65 - 99 mg/dL) 149 H Lactic Acid (0.7 - 2.1 mmol/L) 1.7 Calcium (8.4 - 10.2 mg/dL) 9.0 Total Bilirubin (0.2 - 1.3 mg/dL) 0.7 AST (14 - 36 U/L) 25 ALT (9 - 52 U/L) 36 Alkaline Phosphatase (<127 U/L) 48 Total Protein (6.3 - 8.2 g/dL) 7.0 Albumin (3.5 - 5.0 g/dL) 4.1 Globulin (1.9 - 4.2 gm/dL) 2.9 Albumin/Globulin Ratio (1.1 - 2.2 %) 1.4 Lipase (23 - 300 U/L) 172 Hematology CBC w Diff NO MAN DIFF REQ WBC (4.8 - 10.8 /CUMM) 8.5 RBC (4.20 - 5.40 /CUMM) 4.52 Hgb (12.0 - 16.0 G/DL) 12.0 Hct (37 - 47 %) 36.6 L MCV (81.0 - 99.0 FL) 81.0 MCH (27.0 - 31.0 PG) 26.5 L MCHC (33.0 - 37.0 G/DL) 32.7 L RDW (11.5 - 14.5 %) 14.8 H Plt Count (130 - 400 /CUMM) 459 H MPV (7.4 - 10.4 FL) 7.7 Gran % (42.2 - 75.2 %) 57.0 Lymphocytes % (20.5 - 51.1 %) 35.4 Monocytes % (1.7 - 9.3 %) 4.8 Eosinophils % (0 - 5 %) 1.4 Basophils % (0.0 - 2.0 %) 1.4 Absolute Granulocytes (1.4 - 6.5 /CUMM) 4.8 Absolute Lymphocytes (1.2 - 3.4 /CUMM) 3.0 Absolute Monocytes (0.10 - 0.60 /CUMM) 0.4 Absolute Eosinophils (0.0 - 0.7 /CUMM) 0.1 Absolute Basophils (0.0 - 0.2 /CUMM) 0.1 Assessment/Plan Assessment/Plan 32 F with biliary and pancreatic ductal dilatation with normal LFTs Advance to clears, aat D/c IVF when tolerating diet Analgesics/antiemetics prn DVT ppx - alps, hsq OOB ambulate F/u chem Outpt GI c/s Cont observation in anticipation of d/c today pending diet tolerance D/w Dr. Edmonds Core Measures Venous Thromboembolism VTE Risk Factors Estrogen Therapy No Mechanical VTE Prophylaxis d/t N/A MechProphylax Ordered No VTE Pharm Prophylaxis d/t NA PharmProphylax ordered
--- NOTE | 2018-01-24 11:08 | MRI REPORT ---
EXAMINATION: MR ABDOMEN WITHOUT CONTRAST/MRCP CLINICAL INFORMATION: History of laparoscopic cholecystectomy. Gastric bypass. Pancreatic duct dilatation. Rule out stricture, stone, mass. COMPARISON: CT scan of the abdomen and pelvis dated 01/22/2018. TECHNIQUE: An MRI scan of the abdomen was performed using multiple imaging sequences and imaging planes. As per the MRCP protocol, heavily T2-weighted 3-D high-resolution MRCP sequences were obtained in the coronal plane along with thin and thick slab coronal images and coronal MIP reconstructions obtained on the technologist workstation under concurrent physician supervision. FINDINGS: Of note, a preliminary dictation had been offered yesterday on this case by Dr. Keyon Jimenez. The study could not be dictated at the time of the performance of the exam due to irregularities with the division order technician and exam description, which is now resolved this morning. LIVER: The liver is enlarged, measuring 19 cm longitudinally. No hepatic steatosis is seen. No focal cystic or solid mass is present. GALLBLADDER/BILIARY TREE: The patient is status post cholecystectomy with micrometallic artifact seen in the gallbladder fossa. No focal fluid collection is noted in the gallbladder fossa. Common bile duct is smoothly dilated down to the ampullary region, measuring 1.1 cm in diameter. No intraductal debris or mass is seen. Mild intrahepatic ductal dilatation is also seen. PANCREAS: There is smooth dilatation of the entire pancreatic duct down to the ampullary region with the pancreatic duct in the pancreatic head just prior to the ampullary region measuring 0.6 cm in diameter. In the pancreatic body, the duct measures 0.5 cm and in the pancreatic tail, the duct measures 0.3 cm. No cystic side branch ectasia is seen and no intraductal debris or mass is seen. No pancreatic mass is appreciated on noncontrast study. No peripancreatic fluid collection or stranding is seen. SPLEEN: There is a large subcapsular approximately 3 cm diameter mass in the anterolateral periphery of the spleen, demonstrating susceptibility artifact and corresponding to the calcified cortical mass seen on CT scan. This may represent sequelae of previous injury or infarct. ADRENAL GLANDS AND KIDNEYS: Adrenal glands normal. Kidneys bilaterally symmetric in size and function. No focal mass, hydronephrosis, or perinephric stranding. BOWEL LOOPS: Grossly within normal limits. ABDOMINAL WALL: There is a small fat-containing umbilical hernia. LYMPHOVASCULAR STRUCTURES: Abdominal aorta normal in caliber. No periaortic collections. No abdominal adenopathy or free fluid collection. BONES: Within normal limits to the extent included. IMPRESSION: 1. Diffuse dilatation of the intra and extrahepatic bile duct and of the pancreatic duct is seen without obstructing stone or mass demonstrated. Findings raise the suspicion of subtle stricture or other occult mass in the ampullary region. Consider further assessment with endoscopic assessment/ERCP. 2. Mild hepatomegaly. 3. Status post cholecystectomy. 4. Subcapsular mass in the spleen with associated susceptibility artifact, corresponding to the calcified peripheral cortical mass and defect seen on CT scan, likely representing sequelae of previous infarct or injury. 5. Small fat-containing umbilical hernia.
--- NOTE | 2018-01-24 15:25 | Patient Discharge Instructions ---
Discharge Instructions General Discharge Information You were seen/treated for: Abdominal pain, dilated biliary and pancreatitic ducts You had these procedures: None Watch for these problems: Increased pain, nausea or vomiting, fever, chills Special Instructions: Follow up with Dr. Edmonds in the office to arrange further management/ evaluation with endoscopic ultrasound to assess biliary and pancreatic ductal dilatation Diet Continue normal diet: No Recommended Diet: Low Fat Activity Full Activity/No Limits: Yes Acute Coronary Syndrome Inclusion Criteria At DC or during hospital stay patient has or had the following: ACS DIAGNOSIS No Discharge Core Measures Meds if any: Prescribed or Continued at Discharge Meds if any: NOT Prescribed or Continued at Discharge Congestive Heart Failure Inclusion Criteria At DC or during hospital stay patient has or had the following: CHF DIAGNOSIS No Discharge Core Measures Meds if any: Prescribed or Continued at Discharge Meds if any: NOT Prescribed or Continued at Discharge Cerebrovascular accident Inclusion Criteria At DC or during hospital stay patient has or had the following: CVA/TIA Diagnosis No Discharge Core Measures Meds if any: Prescribed or Continued at Discharge Meds if any: NOT Prescribed or Continued at Discharge Venous thromboembolism Inclusion Criteria VTE Diagnosis No VTE Type NONE VTE Confirmed by (Test) NONE Discharge Core Measures - Per Current guidelines, there needs to be overlap - treatment for the first 5 days of Warfarin therapy. - If discharged on Warfarin prior to 5 days of - overlap therapy, the patient will need to be - assessed for post discharge needs including - *Post discharge parental anticoagulation - *Warfarin and/or parental anticoagulation education - *Follow up date to check INR post discharge At least 5 days overlap therapy as Inpatient No Meds if any: Prescribed or Continued at Discharge Note: Overlap Therapy is Warfarin and Anticoagulant Meds if any: NOT Prescribed or Continued at Discharge
[2018-01-24 15:40] VITALS: BP 110/70
[2018-01-24] MEDS ORDERED: MULTIVITAMINS1 EAC9 PO (18:53)
[2018-01-24 22:33] VITALS: BP 122/64
[2018-01-24 22:34] VITALS: BP 122/64
[2018-01-25 06:26] VITALS: BP 116/76
--- NOTE | 2018-01-25 08:04 | PN- General Surgery ---
See Addendum Subjective Subjective: Patient seen and evaluated. No events overnight. Yesterday patient did vomit after diet was progressed and was then trasnfered back to clear liquids. She is tolerating this without n/v. Endoreses a appetite and requesting diet be further advanced. Passing flatus but no BM. Continues to have epigastric pain that she reports is better. Patient offers no other complaints Objective Vital Signs and I&Os Vital Signs Date Time Temp Pulse Resp B/P B/P Pulse O2 O2 Flow FiO2 Mean Ox Delivery Rate 01/25 626 98.7 63 18 116/76 98 Room Air 01/24 2234 98.6 69 18 122/64 98 Room Air 01/24 1540 98.3 63 18 110/70 97 Intake & Output 01/25 0000 01/24 1600 01/24 0000 Intake Total 800 1410 1050 20 Output Total Balance 800 1410 1050 20 Intake, IV 174 285 5497 Intake, Oral 760 50 20 Number 0 0 0 Bowel Movements Patient 188 lb Weight Physical Exam: General: young female, laying in bed, NAD CV: RRR, +s1s2 Pulm: CTA b/l Abdomen: epigastric tenderness, some bs, no guarding or distention Extremities: warm, well perfused, no calf tenderness Current Medications: Current Medications Sig/Mitzy Start time Last Medication Dose Route Stop Time Status Admin Acetaminophen 650 MG Q6P PRN 01/23 100 AC PO Heparin Sodium 5,000 UNIT Q8 01/23 0600 AC 01/25 (Porcine) SC 0543 Morphine Sulfate 4 MG Q3P PRN 01/24 1630 AC 01/24 IV 2242 Morphine Sulfate 4 MG Q4P PRN 01/23 0100 DC 01/23 IV 2134 Omeprazole 40 MG DAILY AC 01/23 0700 AC 01/25 PO 0538 Ondansetron HCl 4 MG Q6P PRN 01/23 0100 AC 01/24 IV 1629 Oxycodone/ 1 TAB Q4P PRN 01/23 010 AC Acetaminophen PO Oxycodone/ 2 TAB Q4P PRN 01/23 0100 AC 01/25 Acetaminophen PO 0539 Promethazine HCl 12.5 MG Q6P PRN 01/23 0100 AC IV 01/30 0059 Sodium Chloride 1,000 ML Q10H 01/24 1600 AC 01/25 IV 0541 Sodium Chloride 1,000 ML Q8H 01/23 0045 DC 01/24 IV 0618 Results Last 48 Hours of Labs: Laboratory Tests 01/24 01/23 0635 0815 Chemistry Sodium (137 - 145 mmol/L) 136 L 135 L Potassium (3.5 - 5.1 mmol/L) 4.5 4.2 Chloride (98 - 107 mmol/L) 108 H 107 Carbon Dioxide (22 - 30 mmol/L) 22 22 Anion Gap (5 - 16) 7 6 BUN (7 - 17 mg/dL) 6 L 7 Creatinine (0.5 - 1.0 mg/dL) 0.7 0.8 Estimated GFR (>60 ml/min) > 60 > 60 BUN/Creatinine Ratio (7 - 25 %) 8.6 8.8 Total Bilirubin (0.2 - 1.3 mg/dL) 0.9 0.9 Direct Bilirubin (< 0.4 mg/dL) 0.1 0.2 AST (14 - 36 U/L) 21 20 ALT (9 - 52 U/L) 36 38 Alkaline Phosphatase (<127 U/L) 28 29 Total Protein (6.3 - 8.2 g/dL) 5.3 L 5.7 L Albumin (3.5 - 5.0 g/dL) 2.9 L 3.2 L Amylase (30 - 110 U/L) 35 40 Lipase (23 - 300 U/L) 45 55 Hematology CBC w Diff NO MAN DIFF REQ NO MAN DIFF REQ WBC (4.8 - 10.8 /CUMM) 5.2 6.9 RBC (4.20 - 5.40 /CUMM) 3.88 L 3.70 L Hgb (12.0 - 16.0 G/DL) 10.4 L 9.9 L Hct (37 - 47 %) 31.2 L 30.0 L MCV (81.0 - 99.0 FL) 80.4 L 81.0 MCH (27.0 - 31.0 PG) 26.7 L 26.7 L MCHC (33.0 - 37.0 G/DL) 33.2 33.0 RDW (11.5 - 14.5 %) 14.4 14.9 H Plt Count (130 - 400 /CUMM) 366 382 MPV (7.4 - 10.4 FL) 8.4 7.9 Gran % (42.2 - 75.2 %) 36.2 L 41.6 L Lymphocytes % (20.5 - 51.1 %) 52.7 H 52.8 H Monocytes % (1.7 - 9.3 %) 4.5 4.1 Eosinophils % (0 - 5 %) 6.0 H 1.0 Basophils % (0.0 - 2.0 %) 0.6 0.5 Absolute Granulocytes (1.4 - 6.5 /CUMM) 1.9 2.9 Absolute Lymphocytes (1.2 - 3.4 /CUMM) 2.7 3.6 H Absolute Monocytes (0.10 - 0.60 /CUMM) 0.2 0.3 Absolute Eosinophils (0.0 - 0.7 /CUMM) 0.3 0.1 Absolute Basophils (0.0 - 0.2 /CUMM) 0 0 Assessment/Plan Assessment/Plan This is a 32 F w/ PMHx of cholecystectomy, obesity s/p gastic bypass 2 years ago with 80 pound weight loss is now HD#3 w/ MRCP showing diffuse dilatation of the intra and extrahepatic bile duct and of the pancreatic duct without obstructing stone or mass demonstrated. Per radiology read these findings raise the suspicion of subtle stricture or other occult mass in the ampullary region. Unsure if this is the cause of her pain. Patient remains hemodynamically stable, vitals WNL, normal LFTs, and no signs of overt peritonitis. She will likely require EUS/ERCP, but will discuss with attending if this should be done now as inpatient or if she can be dc home with plans to follow up outpatient. *With Discuss with Dr. Chan Will keep on clears until decision is made to have EUS today or not IVF while on clears. Will dc once diet is advanced Analgesics/antiemetics prn DVT ppx - alps, hsq OOB ambulate F/u chem Possibly need consult to GI for EUS D/w Dr. Edmonds Core Measures Venous Thromboembolism VTE Risk Factors Estrogen Therapy No Mechanical VTE Prophylaxis d/t N/A MechProphylax Ordered No VTE Pharm Prophylaxis d/t NA PharmProphylax ordered Extremities / lymphatics: free range of motion no peripheral edema Skin: no jaundice no rashes warm, nondiaphoretic Psychiatric: mood and affect are appropriate and alert and oriented to person place and time Labs today reviewed LFTs and CB C are still within normal limits except a lower hemoglobin reflecting hydration Impression is patient was lost weight after gastric bypass surgery who has some mild changes in her electrolytes and differential but otherwise no peritoneal signs or signs of infection or bleeding, still not sure if the radiologic finding explains her pain and vomiting, it could, discussed with GI, she is more workup, presently since LFTs are normal no signs of cholangitis no history of gallstones even, ultimate plan is for EUS at the other facility, the question is whether or not we have to transfer her if she is unable to eat or as an outpatient if she is. Core Measures Venous Thromboembolism VTE Risk Factors Estrogen Therapy No Mechanical VTE Prophylaxis d/t N/A MechProphylax Ordered No VTE Pharm Prophylaxis d/t NA PharmProphylax ordered
[2018-01-25 22:08] VITALS: BP 112/72
[2018-01-26 06:14] VITALS: BP 98/64
--- NOTE | 2018-01-26 08:18 | PN- General Surgery ---
Subjective Subjective: PT IN BED, ABD PAIN AT 3/10. TOLERATING FULL LIQUIDS, DENIES NAUSEA. AMBULATING, VOIDING, PASSING FLATUS, NO BM YET. PT IS VERY HUNGRY AND WANTS TO EAT AND GO HOME DENIES FEVERS Objective Vital Signs and I&Os Vital Signs Date Time Temp Pulse Resp B/P B/P Pulse O2 O2 Flow FiO2 Mean Ox Delivery Rate 01/26 0614 98.1 59 20 98/64 99 Room Air 01/25 2208 98.8 68 18 112/72 97 Room Air Intake & Output 01/26 1600 01/26 0800 01/26 0000 01/25 1600 01/25 0000 Intake Total 50 400 760 450 800 Output Total Balance 50 400 760 450 800 Intake, IV 0 400 450 800 Intake, Oral 50 400 360 Number 0 0 Bowel Movements Patient 188 lb Weight Physical Exam: GEN- NAD RESP- CLEAR CARDIAC-RRR ABD- SOFT, ND, +BS, TENDER IN EPIGASTRIC AREA, NO GAURDING OR REBOUND Current Medications: Current Medications Sig/Mitzy Start time Last Medication Dose Route Stop Time Status Admin Acetaminophen 650 MG Q6P PRN 01/23 0100 AC PO Heparin Sodium 5,000 UNIT Q8 01/23 0600 AC 01/26 (Porcine) SC 0621 Metoclopramide HCl 0 .STK-MED ONE 01/25 1009 DC .ROUTE Metoclopramide HCl 10 MG ONCE ONE 01/25 1000 DC 01/25 IV 01/25 1001 1019 Morphine Sulfate 4 MG Q3P PRN 01/24 1630 AC 01/24 IV 2242 Omeprazole 40 MG DAILY AC 01/23 0700 AC 01/26 PO 0621 Ondansetron HCl 4 MG Q6P PRN 01/23 0100 AC 01/24 IV 1629 Oxycodone/ 1 TAB Q4P PRN 01/23 0100 AC Acetaminophen PO Oxycodone/ 2 TAB Q4P PRN 01/23 0100 AC 01/26 Acetaminophen PO 0626 Patient Medication 1 ED ONE ONE 01/25 915 GA 01/25 Teaching ED 01/25 0916 2122 Promethazine HCl 12.5 MG Q6P PRN 01/23 0100 AC IV 01/30 0059 Sodium Chloride 1,000 ML Q10H 01/24 1600 GA 01/25 IV 0541 Results Last 48 Hours of Labs: Laboratory Tests 01/26 01/25 0633 0735 Chemistry Sodium (137 - 145 mmol/L) Pending 138 Potassium (3.5 - 5.1 mmol/L) Pending 3.9 Chloride (98 - 107 mmol/L) Pending 109 H Carbon Dioxide (22 - 30 mmol/L) Pending 23 Anion Gap (5 - 16) Pending 6 BUN (7 - 17 mg/dL) Pending 4 L Creatinine (0.5 - 1.0 mg/dL) Pending 0.7 Estimated GFR (>60 ml/min) > 60 BUN/Creatinine Ratio (7 - 25 %) Pending 5.7 L Total Bilirubin Pending Direct Bilirubin Pending AST Pending ALT Pending Alkaline Phosphatase Pending Total Protein Pending Albumin Pending Hematology CBC w Diff Pending WBC Pending RBC Pending Hgb Pending Hct Pending MCV Pending MCH Pending MCHC Pending RDW Pending Plt Count Pending MPV Pending Assessment/Plan Assessment/Plan This is a 32 F w/ PMHx of cholecystectomy, obesity s/p gastic bypass 2 years ago with 80 pound weight loss is now HD#3 w/ MRCP showing diffuse dilatation of the intra and extrahepatic bile duct and of the pancreatic duct without obstructing stone or mass demonstrated. Per radiology read these findings raise the suspicion of subtle stricture or other occult mass in the ampullary region. Unsure if this is the cause of her pain. Patient remains hemodynamically stable, vitals WNL, normal LFTs, and no signs of overt peritonitis. She will likely require EUS/ERCP, but will discuss with attending if this should be done now as inpatient or if she can be dc home with plans to follow up outpatient. *With Discuss with Dr. Chan Consider advancing to low fat diet today Analgesics/antiemetics prn DVT ppx - alps, hsq OOB ambulate dc planning- if tolerates low fat diet, could dc to home with outpt followup for EUS D/w Dr. Edmonds Core Measures Venous Thromboembolism VTE Risk Factors Estrogen Therapy No Mechanical VTE Prophylaxis d/t N/A MechProphylax Ordered No VTE Pharm Prophylaxis d/t NA PharmProphylax ordered
[2018-01-26 08:33] LABS: ABSOLUTE BASOPHIL COUNT 0 /CUMM (0.0-0.2); ABSOLUTE EOSINOPHIL COUNT 0.2 /CUMM (0.0-0.7); ABSOLUTE GRANULOCYTE CT 2.3 /CUMM (1.4-6.5); ABSOLUTE LYMPH COUNT 2.5 /CUMM (1.2-3.4); ABSOLUTE MONOCYTE COUNT 0.3 /CUMM (0.10-0.60); BASOPHIL % 0.8 % (0.0-2.0); EOSINOPHIL % 4.3 % (0-5); GRANULOCYTE % 42.8 % (42.2-75.2); HEMATOCRIT 32.5 % (37-47); MEAN CORPUSCULAR HGB 26.5 PG (27.0-31.0); MEAN CORPUSCULAR HGB CONC 32.9 G/DL (33.0-37.0); MEAN CORPUSCULAR VOLUME 80.4 FL (81.0-99.0); MEAN PLATELET VOLUME 8.3 FL (7.4-10.4); PLATELET COUNT 403 /CUMM (130-400); RBC DISTRIBUTION WIDTH 14.6 % (11.5-14.5); RED BLOOD CELL CT 4.04 /CUMM (4.20-5.40); WHITE BLOOD CELL COUNT 5.4 /CUMM (4.8-10.8)
[2018-01-26] MEDS ORDERED: TYLENOL EXTRA500 M2 PO (12:37)
== END 2018-01-26 12:53 | DRG 251 ==
LOC: ERH 16:58 → ERHI 01-23 00:34 → 2NA 01-23 02:41 → ENPENDDIS 01-26 11:54 → 2NA 01-26 12:53
PROVIDERS: Physician Assistant; Physician Assistant Surgical
DX: R10.9 Unspecified abdominal pain (principal); R63.4 Abnormal weight loss; Z68.29 Body mass index [BMI] 29.0-29.9, adult; Z98.84 Bariatric surgery status; R11.10 Vomiting, unspecified; Z88.1 Allergy status to other antibiotic agents; Z88.2 Allergy status to sulfonamides; Z79.891 Long term (current) use of opiate analgesic; K21.9 Gastro-esophageal reflux disease without esophagitis; Z90.49 Acquired absence of other specified parts of digestive tract; D64.9 Anemia, unspecified; Z79.818 Long term (current) use of other agents affecting estrogen receptors and estrogen levels
CPT/HCPCS: 2NASP; 74181; 36415; 36592; 74177; 81001; 81025; 82436; 96374; 96375; J0131; J1644; J1885; J2405; J2765